=== PATIENT | female | born 1995 | race Caucasian/White ===

== ENCOUNTER 2022-01-13 03:26 | Emergency (ER) | payer OTHER ==
[~2022-01-13] VITALS: Ht 154.9 cm; Wt 53.5 kg
[2022-01-13 03:43] VITALS: BP_SYST 121
[2022-01-13] MEDS ORDERED: predniSONE 20 MG TABLET PO ONE (04:30)
[2022-01-13] MEDS ORDERED: ALBUTEROL SULFATE 0.083% 2.5 MG/3 ML VIAL.NEB INH ONE (04:30)
[2022-01-13] MEDS ORDERED: prednisoLONE 15 MG/5 ML UDC PO ONE (05:00)
[2022-01-13] MEDS ORDERED: PRELO PO (06:21)
[2022-01-13] MEDS ORDERED: ALBMDI INH (06:21)
[2022-01-13] MEDS ORDERED: ZIT100/5 PO (06:21)
[2022-01-13 06:27] VITALS: BP_SYST 130
== END 2022-01-13 06:27 | disposition home or self-care (01) ==
LOC: SED 03:26
DX: J45.901 Unspecified asthma with (acute) exacerbation (principal); J20.9 Acute bronchitis, unspecified; R05.9 Cough, unspecified; R50.9 Fever, unspecified; Z79.899 Other long term (current) drug therapy
CPT/HCPCS: 71045; 94640; 94760; 99283; J7512; J7613

== ENCOUNTER 2022-02-24 21:19 | Emergency (ER) | payer OTHER, MEDICAID ==
[~2022-02-24] VITALS: Ht 154.9 cm; Wt 54.4 kg
[~2022-02-24 21:19] MED LIST: ALBMDI INH; PRELO PO; ZIT100/5 PO
[2022-02-24 21:56] VITALS: BP_SYST 128
--- NOTE | 2022-02-24 21:56 | NUR ---
PATIENT BROUGHT IN WITH MOTHER COMPLAINING OF LEFT KNEE PAIN X 2 DAYS AFTER CARRYING A HEAVY BOX AND BENDING DOWN. PATIENT IS ABLE TO AMBULATE. /10 PAIN. NO DEFORMITIES NOTED
--- NOTE | 2022-02-25 02:00 | NUR ---
Patient left without being seen.
== END 2022-02-25 02:00 | disposition left against medical advice (07) ==
LOC: SED 21:19
DX: M25.562 Pain in left knee (principal); Z53.21 Procedure and treatment not carried out due to patient leaving prior to being seen by health care provider
CPT/HCPCS: 73564